=== PATIENT | female | born 1955 | race Caucasian/White ===

== ENCOUNTER 2016-12-24 02:26 | Emergency (ER) | payer MEDICAID ==
[~2016-12-24] VITALS: Ht 175.3 cm; Wt 72.0 kg
[2016-12-24] MEDS ORDERED: ONDANSETRON HCL 4MG/2ML VIAL IV STA (03:11)
[2016-12-24] MEDS ORDERED: MORPHINE SULFATE 4 MG/ML CPJ (NOT FOR IM USE) IV STA (03:11)
[2016-12-24] MEDS ORDERED: ASPIRIN 81MG TABLET PO STA (03:11)
[2016-12-24] MEDS ORDERED: NITROGLYCERIN OINT 1GM/INCH UDPKT TD STA (03:11)
[2016-12-24] MEDS ORDERED: NITROGLYCERIN 0.4MG TABLET SL SL PRN (03:15)
[2016-12-24] MEDS ORDERED: HYDRALAZINE 20MG/ML VIAL IV ONE (03:45)
[2016-12-24 04:12] LABS: BASOPHILS % 1.2 % (0.0-2.0); EOSINOPHILS % 3.6 % (0.0-5.0); HEMATOCRIT. 47.7 % (36.0-48.0); MEAN CORPUSCULAR HEMOGLOBIN 29.5 pg (28.0-32.0); MEAN PLATELET VOLUME 10.5 fl (7.4-10.4); MONOCYTES % 8.3 % (2.0-8.0); NEUTROPHILS % 46.9 % (40.0-76.0); PLATELET 152 x1000/uL (130-400); RED BLOOD CELL COUNT 5.42 mill/uL (4.2-5.4); RED CELL DISTRIBUTION WIDTH 13.7 % (11.6-14.6)
[2016-12-24 04:20] LABS: PARTIAL THROMBOPLASTIN TIME 27.5 sec (24.0-34.0); PROTHROMBIN TIME 10.8 sec
[2016-12-24 04:28] LABS: CARBON DIOXIDE 29 mEq/L (21-32); CHLORIDE 104 mEq/L (98-107); CREATINE KINASE 82 IU/L (26-192); TROPONIN I < 0.02 ng/mL (0.00-0.04)
[2016-12-24 04:33] LABS: CREATINE KINASE MB FRACTION 1.9 ng/mL (0.5-3.6)
[2016-12-24 06:40] VITALS: BP 157/83
== END 2016-12-24 06:57 | disposition left against medical advice (07) ==
LOC: ER 02:29 → CANRESERV 04:52 → ENRESERV 04:52 → ER 06:57 → CANBEDREQ 07:04
DX: R07.89 Other chest pain (principal); I10 Essential (primary) hypertension; E05.90 Thyrotoxicosis, unspecified without thyrotoxic crisis or storm; F17.210 Nicotine dependence, cigarettes, uncomplicated; R10.9 Unspecified abdominal pain; Z98.890 Other specified postprocedural states
CPT/HCPCS: 36415; 71010; 76705; 80053; 80162; 82550; 82553; 83690; 83880; 84443; 84484; 85025; 85610; 85730; 93005; 93970; 96374; 96375; 99285; J0360; J2270; J2405

== ENCOUNTER 2021-06-05 12:21 | Emergency (ER) | payer MEDICAID ==
[~2021-06-05] VITALS: Ht 165.1 cm; Wt 59.0 kg
[2021-06-05] MEDS ORDERED: IPRATROPIUM BROMIDE (0.02%) 0.5MG/2.5ML NEB HHN STA (12:40)
[2021-06-05] MEDS ORDERED: METHYLPREDNISOLONE SOD SUCC 125 MG/2 ML VIAL IV STA (12:40)
[2021-06-05] MEDS ORDERED: ALBUTEROL (0.083%) 2.5MG/3ML NEB HHN STA (12:40)
[2021-06-05 13:08] LABS: BASOPHILS % 0.7 % (0.0-2.0); EOSINOPHILS % 0.4 % (0.0-5.0); HEMOGLOBIN. 15.8 g/dL (12.0-16.0); LYMPHOCYTES % 14.8 % (20.0-50.0); MEAN CORPUSCULAR HEMOGLOBIN 30.1 pg (28.0-32.0); MEAN CORPUSCULAR VOLUME 89.7 fL (81.0-99.0); MEAN PLATELET VOLUME 10.2 fl (7.4-10.4); MONOCYTES % 7.7 % (2.0-8.0); NEUTROPHILS % 76.4 % (40.0-76.0); PLATELET 89 x1000/uL (130-400); RED BLOOD CELL COUNT 5.24 mill/uL (4.2-5.4); RED CELL DISTRIBUTION WIDTH 14.6 % (11.6-14.6)
[2021-06-05 13:14] LABS: CHLORIDE 106 mEq/L (98-107)
[2021-06-05 13:36] LABS: DIGOXIN 1.5 ng/mL (0.9-2.0)
[2021-06-05] MEDS ORDERED: DILTIAZEM HCL 5MG/ML 5ML VIAL IV ONE (14:00)
[2021-06-05 14:13] VITALS: BP 109/68
== END 2021-06-05 14:35 | disposition left against medical advice (07) ==
LOC: ER 12:21
DX: R06.02 Shortness of breath (principal); F17.200 Nicotine dependence, unspecified, uncomplicated; I10 Essential (primary) hypertension; Z86.39 Personal history of other endocrine, nutritional and metabolic disease; Z98.890 Other specified postprocedural states
CPT/HCPCS: 36415; 71045; 80053; 80162; 83880; 84484; 85025; 93005; 94640; 96374; 96375; 99291; J2930; J3490; Z7610

== ENCOUNTER 2021-06-07 11:14 | Inpatient (IN) | payer MEDICAID ==
[~2021-06-07] VITALS: Ht 175.3 cm; Wt 58.1 kg
[2021-06-07] MEDS ORDERED: IPRATROPIUM/ALBUTEROL 0.5-3(2.5)MG/3ML NEB HHN ONE (11:45)
[2021-06-07] MEDS ORDERED: DILTIAZEM HCL 5MG/ML 5ML VIAL IV ONE (11:45)
[2021-06-07] MEDS ORDERED: ADENOSINE 3 MG/ML 2ML VIAL IV ONE (11:45)
[2021-06-07] MEDS ORDERED: IPRATROPIUM BROMIDE (0.02%) 0.5MG/2.5ML NEB HHN STA (12:42)
[2021-06-07] MEDS ORDERED: METHYLPREDNISOLONE SOD SUCC 125 MG/2 ML VIAL IV STA (12:42)
[2021-06-07] MEDS ORDERED: ALBUTEROL (0.083%) 2.5MG/3ML NEB HHN SCH (13:00)
[2021-06-07 13:08] LABS: HEMATOCRIT. 52.2 % (36.0-48.0); HEMOGLOBIN. 16.6 g/dL (12.0-16.0); MEAN CORPUSCULAR VOLUME 91.2 fL (81.0-99.0); MEAN PLATELET VOLUME 10.5 fl (7.4-10.4); PLATELET 124 x1000/uL (130-400); RED BLOOD CELL COUNT 5.72 mill/uL (4.2-5.4); RED CELL DISTRIBUTION WIDTH 15.2 % (11.6-14.6)
[2021-06-07 13:09] LABS: CHLORIDE 102 mEq/L (98-107)
[2021-06-07] MEDS ORDERED: SODIUM CHLORIDE 0.9% 1,000 ML IV ONE (14:00)
[2021-06-07 14:15] LABS: PLATELET ESTIMATE SLIGHTLY DECREASED
[2021-06-07] MEDS ORDERED: CEFTRIAXONE 1 G PREMIX 50 ML IV NR (15:15)
[2021-06-07] MEDS ORDERED: ALBUTEROL 6.7GM HFA INHALER ORI PRN (15:30)
[2021-06-07] MEDS ORDERED: ONDANSETRON HCL 4MG/2ML INJ IV PRN (15:30)
[2021-06-07] MEDS ORDERED: ACETAMINOPHEN 325MG TABLET PO PRN ×2 (15:30)
[2021-06-07] MEDS ORDERED: CLONIDINE 0.1MG TABLET PO PRN (15:30)
[2021-06-07] MEDS ORDERED: KETOROLAC 15MG/ML VIAL IV PRN ×2 (15:30)
[2021-06-07] MEDS ORDERED: DOCUSATE SODIUM 100MG CAPSULE PO PRN (15:30)
[2021-06-07] MEDS ORDERED: MAGNESIUM/ALUMINUM HYDROXIDE/SIMETHICONE 30ML UDC PO PRN (15:30)
[2021-06-07] MEDS ORDERED: NITROGLYCERIN 0.4MG TABLET SL SL PRN (15:30)
[2021-06-07] MEDS ORDERED: GUAIFENESIN 200MG/10ML SUGAR FREE UDC PO PRN (15:30)
[2021-06-07] MEDS ORDERED: ZOLPIDEM TARTRATE 5MG TABLET PO PRN (15:30)
[2021-06-07 15:54] LABS: CLARITY URINE CLEAR (CLEAR); COLOR URINE YELLOW (YELLOW); KETONES URINE NEGATIVE (NEGATIVE); LEUKOCYTE ESTERASE URINE NEGATIVE (NEGATIVE); NITRITE URINE NEGATIVE (NEGATIVE); OCCULT BLOOD URINE NEGATIVE (NEGATIVE); PROTEIN URINE TRACE (NEGATIVE); SPECIFIC GRAVITY URINE 1.017 (1.005-1.030)
[2021-06-07] MEDS ORDERED: AZITHROMYCIN 500MG/250ML 250 ML IV NR (16:00)
[2021-06-07 16:11] LABS: *AMPHETAMINES SCREEN URINE NEGATIVE (NEGATIVE); *BARBITURATES SCREEN URINE NEGATIVE (NEGATIVE); *BENZODIAZEPINES SCREEN URINE NEGATIVE (NEGATIVE); *COCAINE SCREEN URINE NEGATIVE (NEGATIVE); METHADONE URINE SCREEN NEGATIVE (NEGATIVE); OPIATES URINE SCREEN PRESUMTIVE POSITIVE (NEGATIVE)
[2021-06-07 16:12] LABS: CANNABINOID URINE SCREEN NEGATIVE (NEGATIVE); PHENCYCLIDINE URINE SCREEN NEGATIVE (NEGATIVE)
[2021-06-07] MEDS ORDERED: AZITHROMYCIN 500 MG in DEXT 5% WATER 250 ML IV SCH (16:15)
[2021-06-07 16:47] LABS: ETHANOL BLOOD < 10 mg/dL
[2021-06-07 16:48] LABS: TOTAL IRON BINDING CAPACITY 385 ug/dL (250-450)
[2021-06-07] MEDS: METHYLPREDNISOLONE SOD SUCC 125 MG/2 ML VIAL IV SCH ×2 (16:50→23:58)
[2021-06-07] MEDS: ENOXAPARIN 40MG/0.4ML SYR SUBCUT SCH (17:19)
[2021-06-07] MEDS ORDERED: ALBUTEROL 6.7GM HFA INHALER ORI SCH (21:00)
[2021-06-07] MEDS: FAMOTIDINE 20MG TABLET PO SCH (21:24)
[2021-06-07] MEDS: ASCORBIC ACID 500 MG TABLET PO SCH (21:24)
[2021-06-07] MEDS ORDERED: IOHEXOL-350 100 ML BOTTLE ONE (23:36)
[2021-06-08] VITALS (7 sets, daily range): BP systolic 112–132; BP diastolic 66–84
[2021-06-08 02:01] LABS: CREATINE KINASE 150 IU/L (26-192)
[2021-06-08 02:07] LABS: CREATINE KINASE MB FRACTION 2.3 ng/mL (0.5-3.6)
[2021-06-08] MEDS ORDERED: LEVO50TA PO (02:53)
[2021-06-08] MEDS ORDERED: ASPI-1160 PO (02:53)
[2021-06-08] MEDS ORDERED: METO-385 PO (02:53)
[2021-06-08] MEDS ORDERED: AMLO10TA80 PO (02:53)
[2021-06-08] MEDS ORDERED: DIGO125T2 PO (02:53)
[2021-06-08] MEDS: METHYLPREDNISOLONE SOD SUCC 125 MG/2 ML VIAL IV SCH (05:58)
[2021-06-08] MEDS ORDERED: ZINC SULFATE 220 MG ( 50 ) CAPSULE PO SCH (09:00)
[2021-06-08] MEDS ORDERED: CHOLECALCIFEROL (D3) 1000 UNIT TABLET PO SCH (09:00)
[2021-06-08] MEDS ORDERED: ASPIRIN 325MG EC TABLET PO SCH (09:00)
[2021-06-08] MEDS: FAMOTIDINE 20MG TABLET PO SCH ×2 (09:11→20:34)
[2021-06-08] MEDS: ASCORBIC ACID 500 MG TABLET PO SCH ×2 (09:12→20:34)
[2021-06-08] MEDS ORDERED: DEXAMETHASONE 4MG/ML 1ML VIAL IV SCH (10:45)
[2021-06-08] MEDS ORDERED: CEFTRIAXONE 1 G PREMIX 50 ML IV SCH (10:45)
[2021-06-08 13:24] LABS: HEMATOCRIT. 46.6 % (36.0-48.0); HEMOGLOBIN. 15.1 g/dL (12.0-16.0); MEAN CORPUSCULAR HEMOGLOBIN 29.1 pg (28.0-32.0); MEAN CORPUSCULAR VOLUME 89.7 fL (81.0-99.0); MEAN PLATELET VOLUME 10.9 fl (7.4-10.4); PLATELET 103 x1000/uL (130-400); RED CELL DISTRIBUTION WIDTH 14.8 % (11.6-14.6)
[2021-06-08 13:32] LABS: CHLORIDE 105 mEq/L (98-107)
[2021-06-08 13:55] LABS: CREATINE KINASE 76 IU/L (26-192)
[2021-06-08 13:58] LABS: CREATINE KINASE MB FRACTION 1.8 ng/mL (0.5-3.6)
[2021-06-08] MEDS ORDERED: CEFTRIAXONE 1,000 MG in DEXTROSE 5% WATER 50 ML IV SCH (14:00)
[2021-06-08] MEDS ORDERED: AZITHROMYCIN 500 MG in DEXT 5% WATER 250 ML IV SCH (16:00)
[2021-06-08] MEDS: ENOXAPARIN 40MG/0.4ML SYR SUBCUT SCH (16:08)
[2021-06-08] MEDS ORDERED: AZITHROMYCIN 500MG in DEXTROSE 5% WATER 250ML IV SCH (17:00)
[2021-06-08 17:40] LABS: PLATELET ESTIMATE DECREASED
[2021-06-09 19:11] LABS: FOLIC ACID (FOLATE) SERUM 12.2 ng/mL (>5.38)
== END 2021-06-09 00:49 | disposition left against medical advice (07) | DRG 720 ==
LOC: ER 11:14 → 7EST 15:12
PROVIDERS: ADMIT Internal Medicine; ATTEND Internal Medicine
DX: A41.89 Other specified sepsis (principal); J96.00 Acute respiratory failure, unspecified whether with hypoxia or hypercapnia; J12.82 Pneumonia due to coronavirus disease 2019; E44.0 Moderate protein-calorie malnutrition; U07.1 COVID-19; I11.0 Hypertensive heart disease with heart failure; J15.9 Unspecified bacterial pneumonia; I50.9 Heart failure, unspecified; E05.90 Thyrotoxicosis, unspecified without thyrotoxic crisis or storm; R74.01 Elevation of levels of liver transaminase levels; Z99.81 Dependence on supplemental oxygen; J44.0 Chronic obstructive pulmonary disease with (acute) lower respiratory infection; I47.1 Supraventricular tachycardia; J44.1 Chronic obstructive pulmonary disease with (acute) exacerbation; E03.9 Hypothyroidism, unspecified; I48.91 Unspecified atrial fibrillation; R65.20 Severe sepsis without septic shock; Z79.82 Long term (current) use of aspirin; Z98.891 History of uterine scar from previous surgery; Z85.72 Personal history of non-Hodgkin lymphomas; Z79.899 Other long term (current) drug therapy; Z68.1 Body mass index [BMI] 19.9 or less, adult
CPT/HCPCS: 36415; 71045; 71275; 80053; 80305; 80320; 81003; 82550; 82553; 82607; 82746; 83540; 83550; 83605; 83615; 83735; 83880; 84100; 84145; 84443; 84484; 85025; 85379; 87426; 93970; 94640; 99291; J0456; J0696; J1100; J1650; J1885; J2930; J7060; Q9967; G0480

== ENCOUNTER 2021-06-09 11:45 | Inpatient (IN) | payer MEDICAID ==
[~2021-06-09] VITALS: Ht 175.3 cm; Wt 63.0 kg
[~2021-06-09 11:45] MED LIST: AMLO10TA80 PO; ASPI-1160 PO; DIGO125T2 PO; LEVO50TA PO; METO-385 PO
[2021-06-09] MEDS ORDERED: DEXAMETHASONE 4MG/ML 1ML VIAL IV ONE (12:15)
[2021-06-09 12:46] LABS: HEMATOCRIT. 55.1 % (36.0-48.0); HEMOGLOBIN. 18.3 g/dL (12.0-16.0); MEAN CORPUSCULAR VOLUME 90.4 fL (81.0-99.0); MEAN PLATELET VOLUME 11.3 fl (7.4-10.4); PLATELET 156 x1000/uL (130-400); RED CELL DISTRIBUTION WIDTH 15.2 % (11.6-14.6)
[2021-06-09 12:53] LABS: CHLORIDE 106 mEq/L (98-107)
[2021-06-09 13:27] LABS: PLATELET ESTIMATE NORMAL
[2021-06-09 14:57] LABS: PROTHROMBIN TIME 11.1 sec (9.6-11.0)
[2021-06-09] MEDS ORDERED: PIPERACILLIN/TAZ 3.375G PREMIX 50 ML IV NR (15:30)
[2021-06-09] MEDS ORDERED: IPRATROPIUM/ALBUTEROL 0.5-3(2.5)MG/3ML NEB HHN PRN (17:00)
[2021-06-09] MEDS ORDERED: CEFTRIAXONE 1 G PREMIX 50 ML IV NR (17:00)
[2021-06-09] MEDS ORDERED: ACETAMINOPHEN 325MG TABLET PO PRN (17:00)
[2021-06-09] MEDS ORDERED: HYDROCODONE/ACETAMINOPHEN 5/325MG TABLET PO PRN (17:00)
[2021-06-09] MEDS ORDERED: AZITHROMYCIN 500 MG in DEXT 5% WATER 250 ML IV SCH (17:00)
[2021-06-09] MEDS ORDERED: LORAZEPAM 0.5MG TABLET PO PRN (17:00)
[2021-06-09] MEDS ORDERED: CLONIDINE 0.1MG TABLET PO PRN (17:00)
[2021-06-09] MEDS ORDERED: NALOXONE HCL 0.4MG/ML VIAL IV PRN (17:15)
[2021-06-09] MEDS ORDERED: AZITHROMYCIN 500MG/250ML 250 ML IV NR (19:30)
[2021-06-09] MEDS: ONDANSETRON HCL 4MG/2ML INJ IV PRN (20:48)
[2021-06-09] MEDS: ENOXAPARIN 30MG/0.3ML SYR SUBCUT SCH (21:33)
[2021-06-09 22:10] LABS: CLARITY URINE CLEAR (CLEAR); COLOR URINE YELLOW (YELLOW); KETONES URINE NEGATIVE (NEGATIVE); LEUKOCYTE ESTERASE URINE NEGATIVE (NEGATIVE); NITRITE URINE NEGATIVE (NEGATIVE); OCCULT BLOOD URINE NEGATIVE (NEGATIVE); PH URINE 6.5 (4.5-8.0); PROTEIN URINE 1+ (NEGATIVE); SPECIFIC GRAVITY URINE 1.022 (1.005-1.030)
[2021-06-09 22:29] LABS: *AMPHETAMINES SCREEN URINE NEGATIVE (NEGATIVE); CANNABINOID URINE SCREEN NEGATIVE (NEGATIVE); OPIATES URINE SCREEN PRESUMTIVE POSITIVE (NEGATIVE); PHENCYCLIDINE URINE SCREEN NEGATIVE (NEGATIVE)
[2021-06-09 22:30] LABS: *BARBITURATES SCREEN URINE NEGATIVE (NEGATIVE); *BENZODIAZEPINES SCREEN URINE NEGATIVE (NEGATIVE); *COCAINE SCREEN URINE NEGATIVE (NEGATIVE)
[2021-06-09 22:32] LABS: METHADONE URINE SCREEN PRESUMTIVE POSITIVE (NEGATIVE)
[2021-06-10] MEDS: ONDANSETRON HCL 4MG/2ML INJ IV PRN ×2 (02:39→23:30)
[2021-06-10 09:05] VITALS: BP 135/78
[2021-06-10 12:00] VITALS: BP 116/75
[2021-06-10 13:09] LABS: BASOPHILS % 0.1 % (0.0-2.0); EOSINOPHILS % 0.5 % (0.0-5.0); HEMOGLOBIN. 14.9 g/dL (12.0-16.0); MEAN CORPUSCULAR HEMOGLOBIN 29.3 pg (28.0-32.0); MEAN CORPUSCULAR VOLUME 90.2 fL (81.0-99.0); MEAN PLATELET VOLUME 10.4 fl (7.4-10.4); NEUTROPHILS % 84.4 % (40.0-76.0); PLATELET 124 x1000/uL (130-400); RED CELL DISTRIBUTION WIDTH 14.8 % (11.6-14.6)
[2021-06-10 13:18] LABS: CHLORIDE 104 mEq/L (98-107)
[2021-06-10] MEDS ORDERED: DIGOXIN 125MCG TABLET PO SCH (13:45)
[2021-06-10] MEDS ORDERED: AMLODIPINE 10MG TABLET PO SCH (13:45)
[2021-06-10] MEDS: LEVOTHYROXINE SODIUM 50MCG TABLET PO SCH (14:15)
[2021-06-10] MEDS: ASPIRIN 81MG TABLET PO SCH (14:15)
[2021-06-10 16:00] VITALS: BP 128/61
[2021-06-10] MEDS ORDERED: METOPROLOL SUCCINATE 50MG ER TABLET PO SCH (16:00)
[2021-06-10] MEDS: CEFTRIAXONE 1,000 MG in DEXTROSE 5% WATER 50 ML IV SCH (17:27)
[2021-06-10 18:08] LABS: C REACTIVE PROTEIN QUANT 4.1 mg/L (0.0-3.0)
[2021-06-10 20:00] VITALS: BP 111/73
[2021-06-10] MEDS: AZITHROMYCIN 500MG in DEXTROSE 5% WATER 250ML IV SCH (20:56)
[2021-06-10] MEDS: ENOXAPARIN 30MG/0.3ML SYR SUBCUT SCH (20:56)
[2021-06-11 04:00] VITALS: BP 101/80
[2021-06-11] MEDS: LEVOTHYROXINE SODIUM 50MCG TABLET PO SCH (06:15)
[2021-06-11 08:33] LABS: CHLORIDE 100 mEq/L (98-107)
[2021-06-11 08:46] LABS: T4 FREE 1.55 ng/dL (0.76-1.46)
[2021-06-11] MEDS: ASPIRIN 81MG TABLET PO SCH (08:48)
[2021-06-11 11:09] LABS: BASOPHILS % 0.1 % (0.0-2.0); EOSINOPHILS % 0.1 % (0.0-5.0); HEMOGLOBIN. 15.2 g/dL (12.0-16.0); LYMPHOCYTES % 10.1 % (20.0-50.0); MEAN CORPUSCULAR HEMOGLOBIN 29.2 pg (28.0-32.0); MEAN CORPUSCULAR VOLUME 88.8 fL (81.0-99.0); MEAN PLATELET VOLUME 10.3 fl (7.4-10.4); MONOCYTES % 7.2 % (2.0-8.0); NEUTROPHILS % 82.5 % (40.0-76.0); PLATELET 94 x1000/uL (130-400); RED BLOOD CELL COUNT 5.19 mill/uL (4.2-5.4); RED CELL DISTRIBUTION WIDTH 14.2 % (11.6-14.6)
[2021-06-11] MEDS: CEFTRIAXONE 1,000 MG in DEXTROSE 5% WATER 50 ML IV SCH (18:49)
[2021-06-11] MEDS: DEXAMETHASONE 10 MG/ML VIAL IV SCH (18:50)
[2021-06-11 20:00] VITALS: BP 124/73
[2021-06-11] MEDS: ENOXAPARIN 30MG/0.3ML SYR SUBCUT SCH (21:00)
[2021-06-11] MEDS: AZITHROMYCIN 500MG in DEXTROSE 5% WATER 250ML IV SCH (22:27)
[2021-06-12] VITALS: BP 130/73
[2021-06-12 04:00] VITALS: BP 117/66
[2021-06-12] MEDS: LEVOTHYROXINE SODIUM 50MCG TABLET PO SCH (06:28)
[2021-06-12 07:35] LABS: BASOPHILS % 0.3 % (0.0-2.0); EOSINOPHILS % 0.1 % (0.0-5.0); HEMATOCRIT. 49.5 % (36.0-48.0); HEMOGLOBIN. 16.4 g/dL (12.0-16.0); LYMPHOCYTES % 9.7 % (20.0-50.0); MEAN CORPUSCULAR HEMOGLOBIN 30.1 pg (28.0-32.0); MEAN CORPUSCULAR VOLUME 90.7 fL (81.0-99.0); MEAN PLATELET VOLUME 10.6 fl (7.4-10.4); MONOCYTES % 5.7 % (2.0-8.0); NEUTROPHILS % 84.2 % (40.0-76.0); PLATELET 55 x1000/uL (130-400); RED BLOOD CELL COUNT 5.46 mill/uL (4.2-5.4)
[2021-06-12 07:38] LABS: CHLORIDE 99 mEq/L (98-107)
[2021-06-12 08:00] VITALS: BP 124/80
[2021-06-12] MEDS: ASPIRIN 81MG TABLET PO SCH (09:15)
[2021-06-12] MEDS: DEXAMETHASONE 10 MG/ML VIAL IV SCH (09:15)
[2021-06-12 12:00] VITALS: BP 129/78
[2021-06-12 16:00] VITALS: BP 141/72
[2021-06-12] MEDS: CEFTRIAXONE 1,000 MG in DEXTROSE 5% WATER 50 ML IV SCH (16:42)
[2021-06-12 20:00] VITALS: BP 157/66
[2021-06-12] MEDS: AZITHROMYCIN 500 MG TABLET PO SCH (20:56)
[2021-06-13] VITALS: BP 134/65
[2021-06-13 04:00] VITALS: BP 145/90
[2021-06-13] MEDS: LEVOTHYROXINE SODIUM 50MCG TABLET PO SCH (06:09)
[2021-06-13 08:00] VITALS: BP 138/63
[2021-06-13] MEDS: DEXAMETHASONE 10 MG/ML VIAL IV SCH (08:42)
[2021-06-13] MEDS: ASPIRIN 81MG TABLET PO SCH (08:42)
[2021-06-13 12:00] VITALS: BP 152/89
[2021-06-13 16:00] VITALS: BP 163/86
[2021-06-13] MEDS: BLOOD SUGAR DIAGNOSTIC STRIP TEST SCH ×2 (16:40→21:00)
[2021-06-13] MEDS ORDERED: DEXTROSE 50% WATER 50ML SYRINGE IV PRN ×2 (16:45)
[2021-06-13] MEDS: AZITHROMYCIN 500 MG TABLET PO SCH (18:39)
[2021-06-13] MEDS: CEFTRIAXONE 1,000 MG in DEXTROSE 5% WATER 50 ML IV SCH (18:39)
[2021-06-13] MEDS: INSULIN LISPRO 100 UNITS/ML SUBCUT SCH ×2 (18:42→22:09)
[2021-06-13] MEDS ORDERED: INSULIN LISPRO 100 UNITS/ML SUBCUT NR (19:15)
[2021-06-13 20:00] VITALS: BP 141/77
[2021-06-14] MEDS: INSULIN GLARGINE UD 100 UNITS/ML SYR SUBCUT SCH ×2 (00:07→22:47)
[2021-06-14 04:02] VITALS: BP 134/74
[2021-06-14] MEDS: BLOOD SUGAR DIAGNOSTIC STRIP TEST SCH ×4 (06:42→20:26)
[2021-06-14] MEDS: LEVOTHYROXINE SODIUM 50MCG TABLET PO SCH (06:42)
[2021-06-14] MEDS: INSULIN LISPRO 100 UNITS/ML SUBCUT SCH ×4 (06:42→20:26)
[2021-06-14 08:00] VITALS: BP 142/63
[2021-06-14] MEDS: DEXAMETHASONE 10 MG/ML VIAL IV SCH (08:50)
[2021-06-14] MEDS: ASPIRIN 81MG TABLET PO SCH (08:50)
[2021-06-14 11:10] LABS: BASOPHILS % 0.1 % (0.0-2.0); EOSINOPHILS % 0.1 % (0.0-5.0); HEMATOCRIT. 48.1 % (36.0-48.0); HEMOGLOBIN. 15.6 g/dL (12.0-16.0); LYMPHOCYTES % 10.1 % (20.0-50.0); MEAN CORPUSCULAR HEMOGLOBIN 29.3 pg (28.0-32.0); MEAN PLATELET VOLUME 10.8 fl (7.4-10.4); MONOCYTES % 5.7 % (2.0-8.0); PLATELET 133 x1000/uL (130-400); RED BLOOD CELL COUNT 5.34 mill/uL (4.2-5.4); RED CELL DISTRIBUTION WIDTH 14.2 % (11.6-14.6)
[2021-06-14 12:00] VITALS: BP 135/69
[2021-06-14 12:14] LABS: CHLORIDE 101 mEq/L (98-107)
[2021-06-14 14:53] LABS: BG BASE EXCESS 3.6 mmol/L (-2.0-2.0); BG CARBOXYHEMOGLOBIN 0.7 % (0.5-1.5); BG DEOXYHEMOGLOBIN 11.2 % (0.0-5.0); BG FRACTION INSPIRED OXYGEN 21; BG HCO3 ACT 28.5 mmol/L (22.0-26.0); BG METHEMOGLOBIN 0.2 % (0.0-1.5); BG OXYGEN SATURATION 88.7 % (92.0-98.5); BG OXYHEMOGLOBIN 87.9 % (94.0-97.0); BG PCO2 43.9 mmHg (35.0-45.0); BG PH 7.431 (7.350-7.450); BG PO2 51.2 mmHg (75.0-100.0); BG SAMPLE SITE RIGHT RADIAL; BG TOTAL HEMOGLOBIN 16.2 g/dL (12.0-18.0); BG VENT MODE ROOM AIR
[2021-06-14 16:00] VITALS: BP 128/58
[2021-06-14 20:00] VITALS: BP 148/78
[2021-06-15] VITALS (17 sets, daily range): BP systolic 108–151; BP diastolic 60–102
[2021-06-15] MEDS: BLOOD SUGAR DIAGNOSTIC STRIP TEST SCH ×4 (05:48→21:24)
[2021-06-15] MEDS: LEVOTHYROXINE SODIUM 50MCG TABLET PO SCH (05:52)
[2021-06-15] MEDS: INSULIN LISPRO 100 UNITS/ML SUBCUT SCH ×4 (06:12→21:27)
[2021-06-15] MEDS: DEXAMETHASONE 10 MG/ML VIAL IV SCH (09:03)
[2021-06-15] MEDS: ASPIRIN 81MG TABLET PO SCH (09:03)
[2021-06-15 11:13] LABS: BASOPHILS % 0.3 % (0.0-2.0); EOSINOPHILS % 0.1 % (0.0-5.0); HEMATOCRIT. 51.5 % (36.0-48.0); LYMPHOCYTES % 21.5 % (20.0-50.0); MEAN CORPUSCULAR HEMOGLOBIN 29.6 pg (28.0-32.0); MEAN CORPUSCULAR VOLUME 89.5 fL (81.0-99.0); MONOCYTES % 7.9 % (2.0-8.0); NEUTROPHILS % 70.2 % (40.0-76.0); PLATELET 153 x1000/uL (130-400); RED BLOOD CELL COUNT 5.76 mill/uL (4.2-5.4); RED CELL DISTRIBUTION WIDTH 14.5 % (11.6-14.6)
[2021-06-15 11:43] LABS: CHLORIDE 97 mEq/L (98-107)
[2021-06-15] MEDS: LORAZEPAM 0.5MG TABLET PO PRN (12:32)
[2021-06-15] MEDS ORDERED: DILTIAZEM HCL 125 MG in DEXT 5% WATER 100 ML IV PRN (13:00)
[2021-06-15] MEDS: INSULIN GLARGINE UD 100 UNITS/ML SYR SUBCUT SCH (21:30)
[2021-06-16] VITALS (58 sets, daily range): BP systolic 111–164; BP diastolic 57–107
[2021-06-16] MEDS: ENOXAPARIN 60MG/0.6ML SYR SUBCUT SCH ×4 (01:38→21:27)
[2021-06-16 06:03] LABS: BASOPHILS % 0.2 % (0.0-2.0); HEMOGLOBIN. 15.9 g/dL (12.0-16.0); LYMPHOCYTES % 11.9 % (20.0-50.0); MEAN CORPUSCULAR HEMOGLOBIN 29.6 pg (28.0-32.0); MEAN CORPUSCULAR VOLUME 89.5 fL (81.0-99.0); MEAN PLATELET VOLUME 10.4 fl (7.4-10.4); MONOCYTES % 6.4 % (2.0-8.0); NEUTROPHILS % 81.5 % (40.0-76.0); PLATELET 146 x1000/uL (130-400); RED BLOOD CELL COUNT 5.37 mill/uL (4.2-5.4)
[2021-06-16 06:22] LABS: CHLORIDE 97 mEq/L (98-107)
[2021-06-16] MEDS: BLOOD SUGAR DIAGNOSTIC STRIP TEST SCH ×4 (06:30→21:26)
[2021-06-16] MEDS: LEVOTHYROXINE SODIUM 50MCG TABLET PO SCH ×2 (06:30→10:10)
[2021-06-16] MEDS: ONDANSETRON HCL 4MG/2ML INJ IV PRN (08:49)
[2021-06-16] MEDS: INSULIN LISPRO 100 UNITS/ML SUBCUT SCH ×4 (08:49→21:25)
[2021-06-16] MEDS ORDERED: MAGNESIUM 2 G PREMIX 50 ML IV SCH (09:00)
[2021-06-16] MEDS ORDERED: HYDROCODONE/ACETAMINOPHEN 5/325MG TABLET PO PRN (10:00)
[2021-06-16] MEDS: ASPIRIN 81MG TABLET PO SCH (10:11)
[2021-06-16] MEDS: MAGNESIUM OXIDE 400MG TABLET PO SCH (10:11)
[2021-06-16] MEDS: DEXAMETHASONE 10 MG/ML VIAL IV SCH (10:12)
[2021-06-16] MEDS: INSULIN GLARGINE UD 100 UNITS/ML SYR SUBCUT SCH (21:26)
[2021-06-17] VITALS (18 sets, daily range): BP systolic 118–158; BP diastolic 71–98
[2021-06-17 05:22] LABS: BASOPHILS % 0.1 % (0.0-2.0); HEMOGLOBIN. 16.2 g/dL (12.0-16.0); LYMPHOCYTES % 9.4 % (20.0-50.0); MEAN CORPUSCULAR HEMOGLOBIN 29.4 pg (28.0-32.0); MEAN CORPUSCULAR VOLUME 88.7 fL (81.0-99.0); MEAN PLATELET VOLUME 10.4 fl (7.4-10.4); MONOCYTES % 5.5 % (2.0-8.0); PLATELET 173 x1000/uL (130-400); RED BLOOD CELL COUNT 5.52 mill/uL (4.2-5.4); RED CELL DISTRIBUTION WIDTH 14.1 % (11.6-14.6)
[2021-06-17 05:32] LABS: CHLORIDE 99 mEq/L (98-107)
[2021-06-17] MEDS: INSULIN LISPRO 100 UNITS/ML SUBCUT SCH ×5 (07:18→21:34)
[2021-06-17] MEDS: BLOOD SUGAR DIAGNOSTIC STRIP TEST SCH ×4 (07:18→21:34)
[2021-06-17] MEDS: LEVOTHYROXINE SODIUM 50MCG TABLET PO SCH (07:18)
[2021-06-17] MEDS: ASPIRIN 81MG TABLET PO SCH (08:50)
[2021-06-17] MEDS: ENOXAPARIN 60MG/0.6ML SYR SUBCUT SCH ×2 (08:50→21:34)
[2021-06-17] MEDS: DEXAMETHASONE 10 MG/ML VIAL IV SCH (08:51)
[2021-06-17] MEDS: MAGNESIUM OXIDE 400MG TABLET PO SCH (08:51)
[2021-06-17] MEDS: INSULIN GLARGINE UD 100 UNITS/ML SYR SUBCUT SCH (21:34)
[2021-06-18] VITALS: BP 145/77
[2021-06-18 04:00] VITALS: BP 125/86
[2021-06-18 06:28] LABS: BASOPHILS % 0.3 % (0.0-2.0); HEMATOCRIT. 45.4 % (36.0-48.0); HEMOGLOBIN. 15.3 g/dL (12.0-16.0); LYMPHOCYTES % 8.3 % (20.0-50.0); MEAN CORPUSCULAR HEMOGLOBIN 30.1 pg (28.0-32.0); MEAN CORPUSCULAR VOLUME 89.2 fL (81.0-99.0); MEAN PLATELET VOLUME 10.4 fl (7.4-10.4); MONOCYTES % 5.9 % (2.0-8.0); NEUTROPHILS % 85.5 % (40.0-76.0); PLATELET 125 x1000/uL (130-400); RED BLOOD CELL COUNT 5.09 mill/uL (4.2-5.4); RED CELL DISTRIBUTION WIDTH 14.3 % (11.6-14.6)
[2021-06-18 06:43] LABS: CHLORIDE 102 mEq/L (98-107)
[2021-06-18 08:00] VITALS: BP 148/90
[2021-06-18] MEDS: INSULIN LISPRO 100 UNITS/ML SUBCUT SCH ×4 (08:10→21:08)
[2021-06-18] MEDS: LEVOTHYROXINE SODIUM 50MCG TABLET PO SCH (08:22)
[2021-06-18] MEDS: MAGNESIUM OXIDE 400MG TABLET PO SCH (08:22)
[2021-06-18] MEDS: ASPIRIN 81MG TABLET PO SCH (08:22)
[2021-06-18] MEDS: ENOXAPARIN 60MG/0.6ML SYR SUBCUT SCH ×2 (08:23→21:09)
[2021-06-18] MEDS: DEXAMETHASONE 10 MG/ML VIAL IV SCH (08:23)
[2021-06-18] MEDS: BLOOD SUGAR DIAGNOSTIC STRIP TEST SCH ×4 (08:24→21:09)
[2021-06-18 12:00] VITALS: BP 137/78
[2021-06-18] MEDS: LORAZEPAM 0.5MG TABLET PO PRN ×3 (12:03→23:07)
[2021-06-18 16:00] VITALS: BP 167/106
[2021-06-18 20:00] VITALS: BP 142/78
[2021-06-18] MEDS: INSULIN GLARGINE UD 100 UNITS/ML SYR SUBCUT SCH (21:09)
[2021-06-18] MEDS: ALBUTEROL 6.7GM HFA INHALER ORI PRN (23:08)
[2021-06-19] VITALS: BP 151/76
[2021-06-19 04:00] VITALS: BP 152/96
[2021-06-19] MEDS: LORAZEPAM 0.5MG TABLET PO PRN ×3 (05:33→20:22)
[2021-06-19] MEDS: BLOOD SUGAR DIAGNOSTIC STRIP TEST SCH ×4 (07:34→21:20)
[2021-06-19] MEDS: INSULIN LISPRO 100 UNITS/ML SUBCUT SCH ×4 (07:34→21:19)
[2021-06-19 08:25] LABS: BASOPHILS % 0.1 % (0.0-2.0); EOSINOPHILS % 0.1 % (0.0-5.0); HEMATOCRIT. 47.2 % (36.0-48.0); HEMOGLOBIN. 15.7 g/dL (12.0-16.0); LYMPHOCYTES % 17.6 % (20.0-50.0); MEAN CORPUSCULAR HEMOGLOBIN 29.7 pg (28.0-32.0); MEAN CORPUSCULAR VOLUME 89.5 fL (81.0-99.0); MEAN PLATELET VOLUME 10.3 fl (7.4-10.4); MONOCYTES % 6.7 % (2.0-8.0); NEUTROPHILS % 75.5 % (40.0-76.0); PLATELET 132 x1000/uL (130-400); RED BLOOD CELL COUNT 5.27 mill/uL (4.2-5.4); RED CELL DISTRIBUTION WIDTH 14.5 % (11.6-14.6)
[2021-06-19] MEDS: MAGNESIUM OXIDE 400MG TABLET PO SCH (09:08)
[2021-06-19] MEDS: LEVOTHYROXINE SODIUM 50MCG TABLET PO SCH (09:09)
[2021-06-19] MEDS: AMLODIPINE 5MG TABLET PO SCH (09:09)
[2021-06-19] MEDS: ASPIRIN 81MG TABLET PO SCH (09:09)
[2021-06-19] MEDS: ENOXAPARIN 60MG/0.6ML SYR SUBCUT SCH ×2 (09:09→21:20)
[2021-06-19] MEDS: DEXAMETHASONE 10 MG/ML VIAL IV SCH (09:10)
[2021-06-19 09:44] LABS: CHLORIDE 104 mEq/L (98-107)
[2021-06-19 12:00] VITALS: BP 141/82
[2021-06-19] MEDS: ALBUTEROL 6.7GM HFA INHALER ORI PRN (12:45)
[2021-06-19 14:15] LABS: BG BASE EXCESS 2.9 mmol/L (-2.0-2.0); BG CARBOXYHEMOGLOBIN 1.4 % (0.5-1.5); BG DEOXYHEMOGLOBIN 12.6 % (0.0-5.0); BG HCO3 ACT 25.5 mmol/L (22.0-26.0); BG OXYGEN SATURATION 87.2 % (92.0-98.5); BG PCO2 33.8 mmHg (35.0-45.0); BG PH 7.496 (7.350-7.450); BG PO2 48.3 mmHg (75.0-100.0); BG SAMPLE SITE RIGHT RADIAL; BG TOTAL HEMOGLOBIN 16.9 g/dL (12.0-18.0); BG VENT MODE ROOM AIR
[2021-06-19 16:00] VITALS: BP 120/69
[2021-06-19 20:00] VITALS: BP 138/77
[2021-06-19] MEDS: INSULIN GLARGINE UD 100 UNITS/ML SYR SUBCUT SCH (21:20)
[2021-06-20] VITALS: BP 120/79
[2021-06-20 04:00] VITALS: BP 118/76
[2021-06-20] MEDS: BLOOD SUGAR DIAGNOSTIC STRIP TEST SCH ×4 (07:40→20:55)
[2021-06-20 08:00] VITALS: BP 127/69
[2021-06-20] MEDS: ASPIRIN 81MG TABLET PO SCH (08:29)
[2021-06-20] MEDS: MAGNESIUM OXIDE 400MG TABLET PO SCH (08:29)
[2021-06-20] MEDS: AMLODIPINE 5MG TABLET PO SCH (08:29)
[2021-06-20] MEDS: DEXAMETHASONE 10 MG/ML VIAL IV SCH (08:29)
[2021-06-20] MEDS: LEVOTHYROXINE SODIUM 50MCG TABLET PO SCH (08:29)
[2021-06-20] MEDS: ENOXAPARIN 60MG/0.6ML SYR SUBCUT SCH ×2 (08:30→22:05)
[2021-06-20] MEDS: INSULIN LISPRO 100 UNITS/ML SUBCUT SCH ×4 (08:31→21:00)
[2021-06-20 12:00] VITALS: BP 126/69
[2021-06-20] MEDS: LORAZEPAM 0.5MG TABLET PO PRN (15:45)
[2021-06-20 16:00] VITALS: BP 141/72
[2021-06-20 20:00] VITALS: BP 141/72
[2021-06-20] MEDS: INSULIN GLARGINE UD 100 UNITS/ML SYR SUBCUT SCH (22:07)
[2021-06-21 00:22] VITALS: BP 139/80
[2021-06-21] MEDS: LORAZEPAM 0.5MG TABLET PO PRN ×2 (01:00→12:29)
[2021-06-21 04:00] VITALS: BP 136/77
[2021-06-21] MEDS: INSULIN LISPRO 100 UNITS/ML SUBCUT SCH ×4 (06:14→22:00)
[2021-06-21] MEDS: BLOOD SUGAR DIAGNOSTIC STRIP TEST SCH ×4 (07:40→21:55)
[2021-06-21 08:00] VITALS: BP 146/71
[2021-06-21] MEDS: LEVOTHYROXINE SODIUM 50MCG TABLET PO SCH (08:57)
[2021-06-21] MEDS: APIXABAN 5 MG TABLET PO SCH ×2 (08:57→17:13)
[2021-06-21] MEDS: DEXAMETHASONE 10 MG/ML VIAL IV SCH (08:57)
[2021-06-21] MEDS: MAGNESIUM OXIDE 400MG TABLET PO SCH (08:57)
[2021-06-21] MEDS: AMLODIPINE 5MG TABLET PO SCH (08:58)
[2021-06-21] MEDS: INSULIN GLARGINE UD 100 UNITS/ML SYR SUBCUT SCH ×2 (10:34→22:07)
[2021-06-21] MEDS: ASPIRIN 81MG TABLET PO SCH (10:41)
[2021-06-21 12:00] VITALS: BP 139/78
[2021-06-21 16:00] VITALS: BP 129/66
[2021-06-21 20:00] VITALS: BP_SYST 125; BP_SYST 132; BP_DIAS 69; BP_DIAS 71
[2021-06-22] VITALS: BP 135/71
[2021-06-22] MEDS: LORAZEPAM 0.5MG TABLET PO PRN ×3 (01:17→23:00)
[2021-06-22 04:00] VITALS: BP 132/69
[2021-06-22] MEDS: ONDANSETRON HCL 4MG/2ML INJ IV PRN ×2 (04:59→15:54)
[2021-06-22] MEDS: BLOOD SUGAR DIAGNOSTIC STRIP TEST SCH ×4 (05:11→21:00)
[2021-06-22 08:00] VITALS: BP 155/89
[2021-06-22] MEDS: ASPIRIN 81MG TABLET PO SCH (09:14)
[2021-06-22] MEDS: MAGNESIUM OXIDE 400MG TABLET PO SCH (09:14)
[2021-06-22] MEDS: APIXABAN 5 MG TABLET PO SCH (09:14)
[2021-06-22] MEDS: LEVOTHYROXINE SODIUM 50MCG TABLET PO SCH (09:14)
[2021-06-22] MEDS: AMLODIPINE 5MG TABLET PO SCH (09:15)
[2021-06-22] MEDS: INSULIN LISPRO 100 UNITS/ML SUBCUT SCH ×3 (09:17→23:01)
[2021-06-22] MEDS: DEXAMETHASONE 10 MG/ML VIAL IV SCH (09:18)
[2021-06-22] MEDS: INSULIN GLARGINE UD 100 UNITS/ML SYR SUBCUT SCH ×2 (10:00→23:02)
[2021-06-22 12:00] VITALS: BP 140/70
[2021-06-22 16:00] VITALS: BP 128/68
[2021-06-22 20:00] VITALS: BP 127/90
[2021-06-23] VITALS: BP 124/80
[2021-06-23 04:00] VITALS: BP 132/70
[2021-06-23] MEDS: ACETAMINOPHEN 325MG TABLET PO PRN ×3 (06:12→21:04)
[2021-06-23] MEDS: BLOOD SUGAR DIAGNOSTIC STRIP TEST SCH ×4 (06:37→21:00)
[2021-06-23] MEDS: INSULIN LISPRO 100 UNITS/ML SUBCUT SCH ×4 (06:38→22:52)
[2021-06-23] MEDS: LEVOTHYROXINE SODIUM 50MCG TABLET PO SCH (06:45)
[2021-06-23 08:00] VITALS: BP 141/81
[2021-06-23 12:00] VITALS: BP 138/88
[2021-06-23] MEDS: LORAZEPAM 0.5MG TABLET PO PRN (12:18)
[2021-06-23] MEDS: DEXAMETHASONE 10 MG/ML VIAL IV SCH (12:18)
[2021-06-23] MEDS: MAGNESIUM OXIDE 400MG TABLET PO SCH (12:19)
[2021-06-23] MEDS: AMLODIPINE 5MG TABLET PO SCH (12:19)
[2021-06-23] MEDS: INSULIN GLARGINE UD 100 UNITS/ML SYR SUBCUT SCH ×2 (12:23→22:51)
[2021-06-23] MEDS: ASPIRIN 81MG TABLET PO SCH (13:12)
[2021-06-23 16:00] VITALS: BP 140/89
[2021-06-23] MEDS: APIXABAN 5 MG TABLET PO SCH ×2 (17:55→18:23)
[2021-06-23 20:00] VITALS: BP 134/89
[2021-06-24] VITALS: BP 140/86
[2021-06-24 04:00] VITALS: BP 123/69
[2021-06-24] MEDS: BLOOD SUGAR DIAGNOSTIC STRIP TEST SCH ×4 (06:16→21:00)
[2021-06-24] MEDS: INSULIN LISPRO 100 UNITS/ML SUBCUT SCH ×4 (06:17→23:02)
[2021-06-24 08:30] VITALS: BP 121/90
[2021-06-24] MEDS: ASPIRIN 81MG TABLET PO SCH (08:57)
[2021-06-24] MEDS: MAGNESIUM OXIDE 400MG TABLET PO SCH (08:58)
[2021-06-24] MEDS: APIXABAN 5 MG TABLET PO SCH ×2 (08:58→17:08)
[2021-06-24] MEDS: AMLODIPINE 5MG TABLET PO SCH (08:58)
[2021-06-24] MEDS: DEXAMETHASONE 10 MG/ML VIAL IV SCH (08:59)
[2021-06-24] MEDS: INSULIN GLARGINE UD 100 UNITS/ML SYR SUBCUT SCH ×2 (10:34→23:03)
[2021-06-24] MEDS ORDERED: APIX5TAB PO (11:27)
[2021-06-24] MEDS ORDERED: BLOO-1465 MT (11:27)
[2021-06-24] MEDS ORDERED: ALBU6.7H9 ORI (11:27)
[2021-06-24] MEDS ORDERED: INSLIS SUBCUT (11:27)
[2021-06-24] MEDS ORDERED: AMLO5TAB88 PO (11:27)
[2021-06-24] MEDS ORDERED: LANC-934 TP (11:27)
[2021-06-24] MEDS ORDERED: LANTUSUD SUBCUT (11:27)
[2021-06-24] MEDS ORDERED: SYRI-219 SQ (11:27)
[2021-06-24] MEDS ORDERED: MED4 MT (11:27)
[2021-06-24 12:00] VITALS: BP 128/88
[2021-06-24] MEDS: LORAZEPAM 0.5MG TABLET PO PRN ×2 (14:27→22:48)
[2021-06-24 16:00] VITALS: BP 139/83
[2021-06-24 20:00] VITALS: BP 133/87
[2021-06-24] MEDS: ONDANSETRON HCL 4MG/2ML INJ IV PRN (22:48)
[2021-06-25] VITALS: BP 137/89
[2021-06-25 04:00] VITALS: BP 137/88
[2021-06-25] MEDS: BLOOD SUGAR DIAGNOSTIC STRIP TEST SCH ×4 (05:52→21:00)
[2021-06-25] MEDS: LEVOTHYROXINE SODIUM 50MCG TABLET PO SCH ×2 (05:58→06:02)
[2021-06-25] MEDS: INSULIN LISPRO 100 UNITS/ML SUBCUT SCH ×4 (05:59→21:00)
[2021-06-25] MEDS: ACETAMINOPHEN 325MG TABLET PO PRN ×2 (06:35→23:15)
[2021-06-25] MEDS: LORAZEPAM 0.5MG TABLET PO PRN ×2 (06:35→18:26)
[2021-06-25 08:00] VITALS: BP 104/74
[2021-06-25] MEDS: AMLODIPINE 5MG TABLET PO SCH (09:00)
[2021-06-25] MEDS: MAGNESIUM OXIDE 400MG TABLET PO SCH (09:12)
[2021-06-25] MEDS: APIXABAN 5 MG TABLET PO SCH ×2 (09:12→17:00)
[2021-06-25] MEDS: ASPIRIN 81MG TABLET PO SCH (09:12)
[2021-06-25] MEDS: DEXAMETHASONE 10 MG/ML VIAL IV SCH (09:14)
[2021-06-25] MEDS: ONDANSETRON HCL 4MG/2ML INJ IV PRN ×2 (09:48→23:18)
[2021-06-25] MEDS ORDERED: LIDOCAINE HCL/PF 1% 2ML VIAL ONE (10:14)
[2021-06-25] MEDS: INSULIN GLARGINE UD 100 UNITS/ML SYR SUBCUT SCH ×2 (11:29→23:18)
[2021-06-25 11:41] LABS: BG BASE EXCESS 1.4 mmol/L (-2.0-2.0); BG CARBOXYHEMOGLOBIN 1.2 % (0.5-1.5); BG DEOXYHEMOGLOBIN 15.2 % (0.0-5.0); BG FRACTION INSPIRED OXYGEN 21; BG HCO3 ACT 24.3 mmol/L (22.0-26.0); BG METHEMOGLOBIN 0.3 % (0.0-1.5); BG OXYGEN SATURATION 84.6 % (92.0-98.5); BG OXYHEMOGLOBIN 83.3 % (94.0-97.0); BG PCO2 33.6 mmHg (35.0-45.0); BG PH 7.477 (7.350-7.450); BG PO2 45.3 mmHg (75.0-100.0); BG SAMPLE SITE RIGHT RADIAL; BG TOTAL HEMOGLOBIN 16.1 g/dL (12.0-18.0); BG VENT MODE ROOM AIR
[2021-06-25 12:00] VITALS: BP 110/68
[2021-06-25 16:00] VITALS: BP 128/85
[2021-06-25 20:00] VITALS: BP 126/81
[2021-06-25] MEDS: DOCUSATE SODIUM 100MG CAPSULE PO PRN (23:15)
[2021-06-26] VITALS (7 sets, daily range): BP systolic 121–156; BP diastolic 65–84
[2021-06-26] MEDS: BLOOD SUGAR DIAGNOSTIC STRIP TEST SCH ×3 (06:45→16:45)
[2021-06-26] MEDS: INSULIN LISPRO 100 UNITS/ML SUBCUT SCH ×4 (07:15→22:27)
[2021-06-26 07:21] LABS: CHLORIDE 108 mEq/L (98-107)
[2021-06-26 07:56] LABS: BASOPHILS % 0.2 % (0.0-2.0); HEMATOCRIT. 40.9 % (36.0-48.0); HEMOGLOBIN. 13.8 g/dL (12.0-16.0); LYMPHOCYTES % 10.2 % (20.0-50.0); MEAN CORPUSCULAR HEMOGLOBIN 30.3 pg (28.0-32.0); MEAN CORPUSCULAR VOLUME 90.1 fL (81.0-99.0); MEAN PLATELET VOLUME 10.8 fl (7.4-10.4); MONOCYTES % 5.1 % (2.0-8.0); NEUTROPHILS % 84.5 % (40.0-76.0); PLATELET 132 x1000/uL (130-400); RED BLOOD CELL COUNT 4.54 mill/uL (4.2-5.4); RED CELL DISTRIBUTION WIDTH 14.9 % (11.6-14.6)
[2021-06-26] MEDS: MAGNESIUM OXIDE 400MG TABLET PO SCH (09:00)
[2021-06-26] MEDS: APIXABAN 5 MG TABLET PO SCH ×2 (09:00→17:27)
[2021-06-26] MEDS: DEXAMETHASONE 10 MG/ML VIAL IV SCH (09:00)
[2021-06-26] MEDS: AMLODIPINE 5MG TABLET PO SCH (09:00)
[2021-06-26] MEDS: LEVOTHYROXINE SODIUM 50MCG TABLET PO SCH (09:00)
[2021-06-26] MEDS: DOCUSATE SODIUM 100MG CAPSULE PO PRN ×2 (09:38→22:18)
[2021-06-26] MEDS: INSULIN GLARGINE UD 100 UNITS/ML SYR SUBCUT SCH ×2 (13:13→22:26)
[2021-06-26] MEDS ORDERED: ASPIRIN 81MG TABLET PO SCH (17:30)
[2021-06-26] MEDS: LORAZEPAM 0.5MG TABLET PO PRN (23:50)
[2021-06-27 00:07] VITALS: BP 141/85
[2021-06-27 04:00] VITALS: BP 152/65
[2021-06-27] MEDS: INSULIN LISPRO 100 UNITS/ML SUBCUT SCH (06:39)
[2021-06-27 08:00] VITALS: BP 145/71
[2021-06-27] MEDS ORDERED: ACETAMINOPHEN 325MG TABLET PO PRN (10:45)
[2021-06-27] MEDS ORDERED: ASPIRIN 81MG TABLET PO SCH (11:00)
[2021-06-27 12:00] VITALS: BP 150/74
[2021-06-27 13:34] VITALS: BP 128/73
[2021-06-30] MEDS ORDERED: DICL100G31 TP (14:31)
[2021-06-30] MEDS ORDERED: GABA-532 MT (14:31)
== END 2021-06-27 14:09 | disposition home or self-care (01) | DRG 137 ==
LOC: ER 11:45 → EDBEDREQ 15:29 → EDBEDREQTM 15:29 → MICUSO 06-10 03:16 → 7EST 06-10 09:33 → MICUSO 06-15 14:03 → 7WST 06-17 07:52 → 5WST 06-22 18:56
PROVIDERS: ADMIT Internal Medicine; ATTEND Internal Medicine
PROC: 05H533Z Insertion of Infusion Device into Right Subclavian Vein, Percutaneous Approach (ICD-10-PCS; principal; 2021-06-12)
PROC: B546ZZA Ultrasonography of Right Subclavian Vein, Guidance (ICD-10-PCS; 2021-06-12)
DX: U07.1 COVID-19 (principal); J96.01 Acute respiratory failure with hypoxia; J12.82 Pneumonia due to coronavirus disease 2019; E46 Unspecified protein-calorie malnutrition; D69.6 Thrombocytopenia, unspecified; J15.9 Unspecified bacterial pneumonia; I47.1 Supraventricular tachycardia; B19.10 Unspecified viral hepatitis B without hepatic coma; I48.0 Paroxysmal atrial fibrillation; B19.20 Unspecified viral hepatitis C without hepatic coma; D75.1 Secondary polycythemia; E03.9 Hypothyroidism, unspecified; F17.200 Nicotine dependence, unspecified, uncomplicated; I10 Essential (primary) hypertension; J44.0 Chronic obstructive pulmonary disease with (acute) lower respiratory infection; F41.9 Anxiety disorder, unspecified; J44.1 Chronic obstructive pulmonary disease with (acute) exacerbation; R00.1 Bradycardia, unspecified; R80.9 Proteinuria, unspecified; E83.42 Hypomagnesemia; J98.11 Atelectasis; R73.9 Hyperglycemia, unspecified; F11.90 Opioid use, unspecified, uncomplicated; Z91.19 Patient's noncompliance with other medical treatment and regimen; Z92.21 Personal history of antineoplastic chemotherapy; Z85.72 Personal history of non-Hodgkin lymphomas; Z68.20 Body mass index [BMI] 20.0-20.9, adult; Z79.82 Long term (current) use of aspirin; Z85.71 Personal history of Hodgkin lymphoma
CPT/HCPCS: 36415; 36600; 71045; 76937; 80048; 80053; 80305; 81003; 82375; 82728; 82805; 82962; 83036; 83605; 83615; 83735; 83880; 84100; 84145; 84439; 84443; 84481; 84484; 85025; 86140; 87426; 93005; 99291; C1725; C1893; C9803; J0456; J0696; J1100; J1650; J1815; J2405; J2543; J3475; J3490; J7060; U0003; U0005

== ENCOUNTER 2022-03-27 23:00 | Emergency (ER) | payer MEDICAID ==
[~2022-03-27] VITALS: Ht 167.6 cm; Wt 73.0 kg
[~2022-03-27 23:00] MED LIST changes: +ALBU6.7H3 ORI; -AMLO10TA80 PO; +AMLO5TAB88 PO; +APIX5TAB PO; +BLOO-1465 MT; +DICL100G31 TP; +GABA-532 MT; +INSLIS SUBCUT; +LANC-934 TP; +LANTUSUD SUBCUT; +MED4 MT; +SYRI-219 SQ
[2022-03-28] MEDS ORDERED: ACETAMINOPHEN 325MG TABLET PO STA (02:23)
[2022-03-28 03:26] LABS: BASOPHILS % 0.7 % (0.0-2.0); EOSINOPHILS % 2.7 % (0.0-5.0); HEMATOCRIT. 42.9 % (36.0-48.0); HEMOGLOBIN. 14.1 g/dL (12.0-16.0); LYMPHOCYTES % 20.6 % (20.0-50.0); MEAN CORPUSCULAR HEMOGLOBIN 30.7 pg (28.0-32.0); MEAN CORPUSCULAR VOLUME 93.9 fL (81.0-99.0); MEAN PLATELET VOLUME 10.3 fl (7.4-10.4); MONOCYTES % 8.2 % (2.0-8.0); NEUTROPHILS % 67.8 % (40.0-76.0); PLATELET 152 x1000/uL (130-400); RED BLOOD CELL COUNT 4.57 mill/uL (4.2-5.4); RED CELL DISTRIBUTION WIDTH 16.1 % (11.6-14.6)
[2022-03-28 03:57] LABS: CHLORIDE 110 mEq/L (98-107)
[2022-03-28 04:12] LABS: ETHANOL BLOOD < 10 mg/dL
[2022-03-28] MEDS ORDERED: NALO4SPR BOTHNSTRLS (04:24)
[2022-03-28 04:46] VITALS: BP 135/75
== END 2022-03-28 05:27 | disposition home or self-care (01) ==
LOC: ER 23:00
DX: R07.89 Other chest pain (principal); R51.9 Headache, unspecified; F11.10 Opioid abuse, uncomplicated; I10 Essential (primary) hypertension; J44.1 Chronic obstructive pulmonary disease with (acute) exacerbation; I48.91 Unspecified atrial fibrillation; Z79.82 Long term (current) use of aspirin; Z79.899 Other long term (current) drug therapy; Z79.4 Long term (current) use of insulin; Z98.890 Other specified postprocedural states; Z86.39 Personal history of other endocrine, nutritional and metabolic disease
CPT/HCPCS: 36415; 71045; 80053; 80320; 83605; 83880; 84145; 84484; 85025; 93005; 99285; G0480

== ENCOUNTER 2022-05-29 14:34 | Inpatient (IN) | payer MEDICAID ==
[~2022-05-29] VITALS: Ht 175.3 cm; Wt 79.4 kg
[~2022-05-29 14:34] MED LIST changes: +NALO4SPR BOTHNSTRLS
[2022-05-29] MEDS ORDERED: ADENOSINE 3 MG/ML 2ML VIAL IV ONE ×3 (14:45)
[2022-05-29 15:40] LABS: BASOPHILS % 0.5 % (0.0-2.0); HEMATOCRIT. 39.5 % (36.0-48.0); HEMOGLOBIN. 13.1 g/dL (12.0-16.0); LYMPHOCYTES % 33.2 % (20.0-50.0); MEAN CORPUSCULAR HEMOGLOBIN 31.6 pg (28.0-32.0); MEAN CORPUSCULAR VOLUME 95.4 fL (81.0-99.0); MEAN PLATELET VOLUME 10.3 fl (7.4-10.4); MONOCYTES % 9.9 % (2.0-8.0); NEUTROPHILS % 54.4 % (40.0-76.0); PLATELET 192 x1000/uL (130-400); RED BLOOD CELL COUNT 4.14 mill/uL (4.2-5.4)
[2022-05-29 15:41] LABS: BG BASE EXCESS -1.3 mmol/L (-2.0-2.0); BG CARBOXYHEMOGLOBIN 1.6 % (0.5-1.5); BG DEOXYHEMOGLOBIN 9.2 % (0.0-5.0); BG FRACTION INSPIRED OXYGEN 21; BG METHEMOGLOBIN 0.2 % (0.0-1.5); BG OXYGEN SATURATION 90.6 % (92.0-98.5); BG PCO2 32.8 mmHg (35.0-45.0); BG PH 7.445 (7.350-7.450); BG PO2 56.2 mmHg (75.0-100.0); BG SAMPLE SITE RIGHT RADIAL; BG TOTAL HEMOGLOBIN 13.5 g/dL (12.0-18.0); BG VENT MODE ROOM AIR
[2022-05-29 15:49] LABS: CHLORIDE 110 mEq/L (98-107)
[2022-05-29 15:54] LABS: INR 1.2; PROTHROMBIN TIME 12.3 sec (9.6-11.0)
[2022-05-29 16:14] LABS: ETHANOL BLOOD < 10 mg/dL
[2022-05-29] MEDS ORDERED: MAGNESIUM 2 G PREMIX 50 ML IV ONE (16:45)
[2022-05-29] MEDS ORDERED: FUROSEMIDE 20MG/2ML VIAL IVP ONE (16:45)
[2022-05-29 17:11] LABS: DIGOXIN 0.8 ng/mL (0.9-2.0)
[2022-05-29] MEDS ORDERED: PIPERACILLIN/TAZ 3.375G PREMIX 50 ML IV ONE (17:15)
[2022-05-29] MEDS ORDERED: LEVOFLOXACIN 500MG PREMIX 100 ML IV ONE (17:15)
[2022-05-29] MEDS ORDERED: DIGOXIN 500MCG/2ML AMP IV ONE (17:30)
[2022-05-29] MEDS ORDERED: ENOXAPARIN 60MG/0.6ML SYR SUBCUT ONE (21:30)
[2022-05-30] MEDS: LEVOTHYROXINE SODIUM 125MCG TABLET PO SCH (10:47)
[2022-05-30 14:30] VITALS: BP 153/108
[2022-05-30] MEDS: AMLODIPINE 5MG TABLET PO SCH (14:45)
[2022-05-30] MEDS ORDERED: FUROSEMIDE 40MG/4ML VIAL IVP SCH (14:45)
[2022-05-30 14:48] VITALS: BP 153/108
[2022-05-30 16:00] VITALS: BP 117/56
[2022-05-30] MEDS ORDERED: INSULIN LISPRO 100 UNITS/ML SUBCUT SCH (17:00)
[2022-05-30] MEDS ORDERED: IOHEXOL-350 100 ML BOTTLE ONE (17:17)
[2022-05-30 18:00] VITALS: BP 107/73
[2022-05-30] MEDS: CEFEPIME 2,000 MG in DEXT 5% WATER 100 ML IV SCH (18:00)
[2022-05-30] MEDS: DOXYCYCLINE HYCLATE 100MG CAPSULE PO SCH (18:01)
[2022-05-30] MEDS: APIXABAN 5 MG TABLET PO SCH (18:01)
[2022-05-30] MEDS: DIGOXIN 125MCG TABLET PO SCH (18:02)
[2022-05-30] MEDS ORDERED: LACTULOSE 20G/30ML UDC PO PRN (20:00)
[2022-05-30] MEDS: METOPROLOL TARTRATE 25MG TABLET PO SCH (20:51)
[2022-05-30 22:00] VITALS: BP 121/66
[2022-05-30] MEDS ORDERED: INSULIN GLARGINE 100 UNITS/ML SUBCUT SCH (22:00)
[2022-05-31] VITALS (11 sets, daily range): BP systolic 92–128; BP diastolic 44–77
[2022-05-31] MEDS: CEFEPIME 2,000 MG in DEXT 5% WATER 100 ML IV SCH ×2 (05:20→18:12)
[2022-05-31] MEDS: LEVOTHYROXINE SODIUM 125MCG TABLET PO SCH (08:32)
[2022-05-31] MEDS: DOXYCYCLINE HYCLATE 100MG CAPSULE PO SCH ×2 (08:32→18:10)
[2022-05-31] MEDS: ASPIRIN 81MG TABLET PO SCH (08:32)
[2022-05-31] MEDS: APIXABAN 5 MG TABLET PO SCH ×2 (08:32→18:10)
[2022-05-31] MEDS: AMLODIPINE 5MG TABLET PO SCH (08:34)
[2022-05-31] MEDS: METOPROLOL TARTRATE 25MG TABLET PO SCH ×2 (08:34→22:00)
[2022-05-31] MEDS ORDERED: METOPROLOL SUCCINATE 50MG ER TABLET PO SCH (09:00)
[2022-05-31] MEDS ORDERED: LEVOTHYROXINE SODIUM 50MCG TABLET PO SCH (09:00)
[2022-05-31 15:31] LABS: CHLORIDE 109 mEq/L (98-107)
[2022-05-31 15:55] LABS: BASOPHILS % 0.3 % (0.0-2.0); EOSINOPHILS % 2.7 % (0.0-5.0); HEMATOCRIT. 36.3 % (36.0-48.0); HEMOGLOBIN. 11.4 g/dL (12.0-16.0); LYMPHOCYTES % 40.5 % (20.0-50.0); MEAN CORPUSCULAR HEMOGLOBIN 30.7 pg (28.0-32.0); MEAN CORPUSCULAR VOLUME 97.5 fL (81.0-99.0); MEAN PLATELET VOLUME 10.3 fl (7.4-10.4); MONOCYTES % 9.9 % (2.0-8.0); NEUTROPHILS % 46.6 % (40.0-76.0); PLATELET 169 x1000/uL (130-400); RED BLOOD CELL COUNT 3.72 mill/uL (4.2-5.4); RED CELL DISTRIBUTION WIDTH 19.7 % (11.6-14.6)
[2022-05-31] MEDS: DIGOXIN 125MCG TABLET PO SCH (18:10)
[2022-06-01] VITALS (7 sets, daily range): BP systolic 93–128; BP diastolic 52–82
[2022-06-01] MEDS: DILTIAZEM HCL 60MG TABLET PO SCH ×3 (00:24→12:10)
[2022-06-01] MEDS: CEFEPIME 2,000 MG in DEXT 5% WATER 100 ML IV SCH (05:34)
[2022-06-01] MEDS: DOXYCYCLINE HYCLATE 100MG CAPSULE PO SCH (08:14)
[2022-06-01] MEDS: LEVOTHYROXINE SODIUM 125MCG TABLET PO SCH (08:14)
[2022-06-01] MEDS: ASPIRIN 81MG TABLET PO SCH (08:14)
[2022-06-01] MEDS: APIXABAN 5 MG TABLET PO SCH (08:14)
[2022-06-01] MEDS ORDERED: DOXY100C5 PO (12:16)
[2022-06-01] MEDS ORDERED: DIGO-26 PO (12:16)
[2022-06-01] MEDS ORDERED: LEVO125T8 PO (12:16)
[2022-06-01] MEDS ORDERED: DILT240C91 MT (12:16)
== END 2022-06-01 18:12 | disposition home or self-care (01) | DRG 720 ==
LOC: ER 14:34 → EDBEDREQ 16:29 → EDBEDREQTM 16:29 → EDBEDREQ 16:48 → MICUSO 23:37 → 5EST 05-30 15:29
PROVIDERS: ADMIT Internal Medicine; ATTEND Internal Medicine
DX: A41.9 Sepsis, unspecified organism (principal); E43 Unspecified severe protein-calorie malnutrition; J18.1 Lobar pneumonia, unspecified organism; J91.8 Pleural effusion in other conditions classified elsewhere; I47.1 Supraventricular tachycardia; I82.612 Acute embolism and thrombosis of superficial veins of left upper extremity; R18.8 Other ascites; J44.0 Chronic obstructive pulmonary disease with (acute) lower respiratory infection; C85.90 Non-Hodgkin lymphoma, unspecified, unspecified site; I48.0 Paroxysmal atrial fibrillation; J44.9 Chronic obstructive pulmonary disease, unspecified; R65.20 Severe sepsis without septic shock; K74.60 Unspecified cirrhosis of liver; E03.9 Hypothyroidism, unspecified; E11.9 Type 2 diabetes mellitus without complications; E78.5 Hyperlipidemia, unspecified; I10 Essential (primary) hypertension; Z87.891 Personal history of nicotine dependence; Z86.16 Personal history of COVID-19; Z79.01 Long term (current) use of anticoagulants; Z79.899 Other long term (current) drug therapy
CPT/HCPCS: 36415; 36600; 71045; 71275; 80048; 80053; 80162; 80320; 82375; 82805; 83605; 83735; 83880; 84145; 84439; 84443; 84481; 84484; 85025; 86850; 86900; 87426; 87804; 93005; 93306; 93970; 99291; J0153; J0692; J1160; J1650; J1940; J1956; J2543; J3475; J7060; Q9967; G0480

== ENCOUNTER 2022-10-05 12:51 | Inpatient (IN) | payer MEDICARE, MEDICAID ==
[2022-10-05] VITALS (10 sets, daily range): BP systolic 50–99; BP diastolic 23–57
[~2022-10-05] VITALS: Ht 172.7 cm; Wt 81.0 kg
[~2022-10-05 12:51] MED LIST changes: -AMLO5TAB88 PO; +DIGO-34 PO; +DILT240C91 MT; +DOXY100C5 PO; +LEVO125T8 PO; -LEVO50TA PO; -MED4 MT; -METO-385 PO; -NALO4SPR BOTHNSTRLS
[2022-10-05] MEDS ORDERED: ACETAMINOPHEN 650MG SUPP PR STA (12:56)
[2022-10-05] MEDS ORDERED: NOREPINEPHRINE 8MG/250ML PMX 250 ML IV ONE (13:00)
[2022-10-05] MEDS ORDERED: HYDROCORTISONE SOD SUCCINATE 100 MG/2 ML VIAL IV ONE (13:00)
[2022-10-05] MEDS ORDERED: VANCOMYCIN 1G PREMIX 200 ML IV ONE (13:00)
[2022-10-05] MEDS ORDERED: PIPERACILLIN/TAZ 3.375G PREMIX 50 ML IV ONE (13:00)
[2022-10-05] MEDS ORDERED: DEXTROSE 50% WATER 50ML SYRINGE IV ONE ×2 (13:00→14:00)
[2022-10-05] MEDS ORDERED: SODIUM CHLORIDE 0.9% 1000ML BAG (SEPSIS BOLUS) IV ONE (13:00)
[2022-10-05] MEDS ORDERED: FENTANYL 2500MCG/250ML PMX 250 ML IV ONE (14:00)
[2022-10-05] MEDS ORDERED: MIDAZOLAM HCL 2 MG/2 ML VIAL IV PRN (14:00)
[2022-10-05] MEDS ORDERED: MIDAZOLAM 100MG/100ML PMX 100 ML IV PRN (14:00)
[2022-10-05] MEDS ORDERED: SODIUM CHLORIDE 0.9% 1,000 ML IV ONE (14:00)
[2022-10-05 14:06] LABS: BG BASE EXCESS -24.5 mmol/L (-2.0-2.0); BG CARBOXYHEMOGLOBIN 0.3 % (0.5-1.5); BG DEOXYHEMOGLOBIN 0.1 % (0.0-5.0); BG FRACTION INSPIRED OXYGEN 100; BG HCO3 ACT 8.1 mmol/L (22.0-26.0); BG METHEMOGLOBIN 0.4 % (0.0-1.5); BG OXYGEN SATURATION 99.9 % (92.0-98.5); BG OXYHEMOGLOBIN 99.2 % (94.0-97.0); BG PCO2 44.1 mmHg (35.0-45.0); BG PH 6.881 (7.350-7.450); BG PO2 499.5 mmHg (75.0-100.0); BG SAMPLE SITE RIGHT BRACHIAL; BG TOTAL HEMOGLOBIN 11.4 g/dL (12.0-18.0); BG VENT MODE VENT - AC
[2022-10-05] MEDS ORDERED: FENTANYL CITRATE 2,500 MCG in SODIUM CHLORIDE 0.9% 200 ML IV PRN (14:15)
[2022-10-05] MEDS ORDERED: MIDAZOLAM HCL 100 MG in SODIUM CHLORIDE 0.9% 100 ML IV PRN (14:15)
[2022-10-05] MEDS ORDERED: SODIUM BICARBONATE 8.4% 1 MEQ/ML 50ML SYR IV ONE ×2 (14:30)
[2022-10-05 14:32] LABS: CLARITY URINE CLOUDY (CLEAR); COLOR URINE ORANGE (YELLOW); KETONES URINE NEGATIVE (NEGATIVE); LEUKOCYTE ESTERASE URINE TRACE (NEGATIVE); NITRITE URINE NEGATIVE (NEGATIVE); OCCULT BLOOD URINE 2+ (NEGATIVE); PROTEIN URINE TRACE (NEGATIVE); SPECIFIC GRAVITY URINE 1.019 (1.005-1.030)
[2022-10-05] MEDS ORDERED: PHENYLEPHRINE 50 MG in DEXT 5% WATER 245 ML IV STA (14:44)
[2022-10-05 15:07] LABS: *AMPHETAMINES SCREEN URINE NEGATIVE (NEGATIVE); *BARBITURATES SCREEN URINE NEGATIVE (NEGATIVE); *BENZODIAZEPINES SCREEN URINE NEGATIVE (NEGATIVE); *COCAINE SCREEN URINE NEGATIVE (NEGATIVE); CANNABINOID URINE SCREEN NEGATIVE (NEGATIVE); METHADONE URINE SCREEN NEGATIVE (NEGATIVE); OPIATES URINE SCREEN PRESUMTIVE POSITIVE (NEGATIVE); PHENCYCLIDINE URINE SCREEN NEGATIVE (NEGATIVE)
[2022-10-05 15:19] LABS: HEMATOCRIT. 35.6 % (36.0-48.0); HEMOGLOBIN. 10.8 g/dL (12.0-16.0); MEAN CORPUSCULAR HEMOGLOBIN 32.1 pg (28.0-32.0); MEAN CORPUSCULAR VOLUME 105.6 fL (81.0-99.0); MEAN PLATELET VOLUME 10.9 fl (7.4-10.4); PLATELET 103 x1000/uL (130-400); RED BLOOD CELL COUNT 3.37 mill/uL (4.2-5.4); RED CELL DISTRIBUTION WIDTH 20.8 % (11.6-14.6)
[2022-10-05 15:23] LABS: CHLORIDE 117 mEq/L (98-107)
[2022-10-05 15:26] LABS: INR 1.7; PROTHROMBIN TIME 17.7 sec (9.6-11.0)
[2022-10-05 15:34] LABS: CREATINE KINASE 321 IU/L (26-192); ETHANOL BLOOD < 10 mg/dL
[2022-10-05] MEDS: PHENYLEPHRINE 50 MG in DEXT 5% WATER 245 ML IV PRN ×3 (16:30→21:08)
[2022-10-05 16:31] LABS: NUCLEATED RED BLOOD CELLS 3 /100 WBC; PLATELET ESTIMATE DECREASED
[2022-10-05] MEDS ORDERED: IOHEXOL-350 100 ML BOTTLE ONE (17:02)
[2022-10-05] MEDS ORDERED: ACETAMINOPHEN 325MG TABLET PO PRN (17:30)
[2022-10-05] MEDS ORDERED: DIPHENHYDRAMINE 50MG/ML VIAL IV PRN (17:30)
[2022-10-05] MEDS ORDERED: PIPERACILLIN/TAZ 3.375G PREMIX 50 ML IV NR (17:30)
[2022-10-05] MEDS ORDERED: IPRATROPIUM/ALBUTEROL 0.5-3(2.5)MG/3ML NEB HHN PRN (17:30)
[2022-10-05] MEDS ORDERED: ONDANSETRON HCL 4MG/2ML INJ IV PRN (17:30)
[2022-10-05] MEDS ORDERED: DEXTROSE 5% WATER 1,000 ML IV SCH (17:30)
[2022-10-05] MEDS ORDERED: AZITHROMYCIN 500 MG TABLET PO NR (19:00)
[2022-10-05] MEDS ORDERED: NOREPINEPHRINE 32 MG in DEXT 5% WATER 218 ML IV PRN ×2 (23:00→23:15)
[2022-10-05] MEDS ORDERED: PHENYLEPHRINE 100 MG in DEXT 5% WATER 240 ML IV PRN ×2 (23:00→23:15)
[2022-10-05 23:47] LABS: BG BASE EXCESS -31.1 mmol/L (-2.0-2.0); BG CARBOXYHEMOGLOBIN 0.3 % (0.5-1.5); BG DEOXYHEMOGLOBIN 0.1 % (0.0-5.0); BG FRACTION INSPIRED OXYGEN 100; BG HCO3 ACT 3.5 mmol/L (22.0-26.0); BG METHEMOGLOBIN 0.4 % (0.0-1.5); BG OXYGEN SATURATION 99.9 % (92.0-98.5); BG OXYHEMOGLOBIN 99.2 % (94.0-97.0); BG PCO2 26.5 mmHg (35.0-45.0); BG PH 6.734 (7.350-7.450); BG PO2 494.8 mmHg (75.0-100.0); BG SAMPLE SITE LEFT RADIAL; BG TOTAL HEMOGLOBIN 10.6 g/dL (12.0-18.0); BG VENT MODE VENT - AC
[2022-10-06] MEDS ORDERED: SODIUM BICARBONATE 8.4% 1 MEQ/ML 50ML SYR IV NR
[2022-10-06] MEDS ORDERED: DOPAMINE 800MG PREMIX (DOUBLE) 250 ML IV PRN
[2022-10-06] MEDS ORDERED: VASOPRESSIN 20 UNIT in SODIUM CHLORIDE 0.9% 99 ML IV PRN ×2
[2022-10-06 00:01] VITALS: BP 74/39
[2022-10-06] MEDS: PHENYLEPHRINE 50 MG in DEXT 5% WATER 245 ML IV PRN (00:10)
[2022-10-06 00:16] VITALS: BP 115/34
[2022-10-06 00:28] VITALS: BP 83/37
[2022-10-06] MEDS ORDERED: SODIUM BICARBONATE 100 MEQ in DEXTROSE 5% WATER 1,000 ML IV SCH ×3 (00:45)
[2022-10-06] MEDS ORDERED: DEXTROSE 50% WATER 50ML SYRINGE IV PRN (01:00)
[2022-10-06] MEDS: HYDROCORTISONE SOD SUCCINATE 100 MG/2 ML VIAL IV SCH ×2 (01:46→05:30)
[2022-10-06] MEDS ORDERED: PIPERACILLIN/TAZOBACTAM 3.375 G in DEXTROSE 5% WATER 50 ML IV SCH ×2 (06:00→08:00)
[2022-10-06] MEDS ORDERED: BLOOD SUGAR DIAGNOSTIC STRIP TEST SCH (06:00)
[2022-10-06] MEDS ORDERED: VANCOMYCIN 750MG PREMIX 150 ML IV SCH (09:00)
[2022-10-06] MEDS ORDERED: AZITHROMYCIN 250 MG TABLET PO SCH (09:00)
[2022-10-06] MEDS ORDERED: VANCOMYCIN 1G PREMIX 200 ML IV SCH (12:00)
== END 2022-10-06 08:19 | DRG 871 ==
LOC: ER 12:51 → EDBEDREQSVC 16:14 → MICUSO 16:15 → EDBEDREQTM 16:27 → EDBEDREQ 16:27 → ENRESERV 21:18
PROVIDERS: ADMIT Internal Medicine; ATTEND Internal Medicine
PROC: 02HV33Z Insertion of Infusion Device into Superior Vena Cava, Percutaneous Approach (ICD-10-PCS; principal; 2022-10-05)
PROC: B548ZZA Ultrasonography of Superior Vena Cava, Guidance (ICD-10-PCS; 2022-10-05)
PROC: 5A2204Z Restoration of Cardiac Rhythm, Single (ICD-10-PCS; 2022-10-05)
PROC: 0BH17EZ Insertion of Endotracheal Airway into Trachea, Via Natural or Artificial Opening (ICD-10-PCS; 2022-10-05)
PROC: 5A1935Z Respiratory Ventilation, Less than 24 Consecutive Hours (ICD-10-PCS; 2022-10-05)
PROC: 5A12012 Performance of Cardiac Output, Single, Manual (ICD-10-PCS; 2022-10-05)
DX: A41.9 Sepsis, unspecified organism (principal); E43 Unspecified severe protein-calorie malnutrition; G93.41 Metabolic encephalopathy; J96.01 Acute respiratory failure with hypoxia; R65.21 Severe sepsis with septic shock; I10 Essential (primary) hypertension; J44.9 Chronic obstructive pulmonary disease, unspecified; I48.91 Unspecified atrial fibrillation; E16.2 Hypoglycemia, unspecified; E05.90 Thyrotoxicosis, unspecified without thyrotoxic crisis or storm; Z20.822 Contact with and (suspected) exposure to COVID-19; D72.819 Decreased white blood cell count, unspecified; D53.9 Nutritional anemia, unspecified; D69.6 Thrombocytopenia, unspecified; E80.6 Other disorders of bilirubin metabolism; K74.60 Unspecified cirrhosis of liver; Z68.27 Body mass index [BMI] 27.0-27.9, adult; Z79.4 Long term (current) use of insulin; Z79.899 Other long term (current) drug therapy; Z79.82 Long term (current) use of aspirin; Z98.891 History of uterine scar from previous surgery; Z85.72 Personal history of non-Hodgkin lymphomas; Z86.718 Personal history of other venous thrombosis and embolism
CPT/HCPCS: 31500; 36415; 36600; 71045; 80053; 80305; 80320; 81003; 82375; 82550; 82805; 82962; 83036; 83605; 83880; 84145; 84484; 85025; 86850; 86900; 87070; 87077; 87186; 87426; 87804; 93005; 93970; 94003; 99291; C9803; J1265; J1720; J2250; J2370; J2543; J3010; J3370; J3490; J7030; J7060; J7070; Q9967; G0480